=== PATIENT | male | born 1975 ===

== ENCOUNTER → 2025-02-19 13:50 | Outpatient (CLI) | payer OTHER, SELFPAY ==
--- NOTE | 2025-02-19 13:57 | DI.ECHO.S_ITS ---
[facility] : : [address] : : [place] : : [id number] : : Phone: [phone] Echocardiogram Report + + :Name: DANNA HENRY Study Date: 02/19/2025 Height: 71 in : :Hospital ReadingLocation: Weight: 215 lb : : Gender: Male BSA: 2.2 m2 : :: 1975 Age: 49 yrs BP: 150/80 mmHg: :Reason For Study: Arrhythmia : :Ordering Physician: ISELA, : :CAIN Performed By: Benitez Pickering : :Referring: CAIN WEISS : + + Interpretation Summary The left ventricle is normal in size. The ejection fraction is estimated to be 55-60%. The right ventricle is normal in size and function. No significant valvular pathology seen. The IVC is of normal diameter and collapses greater than 50% with a sniff. This suggests a low right atrial pressure of 3 mm Hg. Procedure: A two-dimensional transthoracic echocardiogram with color flow and Doppler was performed. The study quality was technically adequate. There is no prior echocardiogram noted for this patient. The patient was in normal sinus rhythm during the exam. Left Ventricle: The left ventricle is normal in size. Left ventricular wall thickness is borderline increased. There is no thrombus. Left ventricular systolic function is normal. The ejection fraction is estimated to be 55-60%. There are no focal wall motion abnormalities. Diastolic function is indeterminate. Right Ventricle: The right ventricle is normal in size and function. Atria: The left atrial size is normal. Right atrial size is normal. There is no Doppler evidence for an interatrial shunt. Mitral Valve: The mitral valve leaflets appear to open well. The mitral valve leaflets are slightly calcified. There is no mitral valve stenosis. There is trace mitral regurgitation. Aortic Valve: The aortic valve is trileaflet. The aortic valve opens well. There is no aortic valve stenosis. No aortic regurgitation is present. Tricuspid Valve: The tricuspid valve leaflets are thin and pliable. There is trace tricuspid regurgitation. Pulmonary artery pressures cannot be estimated because of the lack of a measurable TR jet velocity but the IVC suggests a CVP of around 3 mmHg. Pulmonic Valve: The pulmonic valve is not well seen, but is grossly normal. There is a trace or physiologic amount of pulmonic regurgitation. Great Vessels: The aortic root is normal size. The ascending aorta is normal in size. The aortic arch could not be visualized. The pulmonary artery is normal size. The IVC is of normal diameter and collapses greater than 50% with a sniff. This suggests a low right atrial pressure of 3 mm Hg. Pericardium/ Pleura There is no pericardial effusion. There is an anterior echo-free space consistent with a fat pad. MMode/2D Measurements & Calculations LVIDd: 5.3 cm LVOT diam: 2.1 cm LVIDs: 3.3 cm Ao root diam: 3.2 cm FS: 38.0 % asc Aorta Diam: 3.0 cm IVSd: 1.1 cm LVPWd: 1.1 cm LV kent. diameter/BSA (cm/m^2): 2.4 LV sys. diameter/BSA (cm/m^2): 1.5 LA A2 area: 16.2 cm2 RA area: 13.5 cm2 LA A4 area: 14.5 cm2 IVC diam: 1.4 cm LA length (vol): 5.0 cm LA vol: 39.9 ml LA vol index: 18.3 ml/m2 RVD1 (basal): 3.2 cm RVD2 (mid): 2.7 cm TAPSE: 2.1 cm Doppler Measurements & Calculations Ao V2 max: 140.5 cm/sec LVOT Max David: 99.9 cm/sec Ao V2 mean: 105.4 cm/sec LV V1 max P.0 mmHg Ao max P.9 mmHg LV V1 VTI: 17.3 cm Ao mean P.8 mmHg ELISABETH(I,D): 2.3 cm2 Ao V2 VTI: 25.0 cm ELISABETH(V,D): 2.3 cm2 sev ratio: 0.69 ELISABETH indexed to BSA (cm^2/m^2): 1.1 MV E max david: 62.0 cm/sec PA V2 max: 94.0 cm/sec MV A max david: 70.0 cm/sec PA V2 mean: 64.6 cm/sec MV E/A: 0.88 PA mean P.9 mmHg MV dec time: 0.17 sec PA pr(Accel): 27.6 mmHg SV(LVOT): 57.0 ml Reading Physician:05:15 PM
--- NOTE | 2025-02-19 14:54 | EKG_ITS ---
[facility] [address] [place] [address] Test Date: 2025-02-19 Pat Name: Diego Gardner Department: Room: Gender: Male [employer]: : 1975 Requested By: Order Number: [id number] Reading MD: Gregg Houston MD Measurements Intervals [place] Rate: 75 P: 57 AK: 170 QRS: 7 QRSD: 106 T: 16 QT: 380 QTc: 424 Interpretive Statements Normal sinus rhythm Electronically Signed On 02-19-2025 17:05:35 PST by Gregg Houston MD
== END ==
LOC: ECHO 13:54
PROVIDERS: Referring Provider Chiropractor; Visit Provider Chiropractor
DX: I49.9 Cardiac arrhythmia, unspecified (principal)
CPT/HCPCS: 93005; 93306